=== PATIENT | female | born 1950 | race Caucasian/White ===

== ENCOUNTER → 2016-11-25 16:55 | Outpatient (CLI) | payer MEDICARE, BC | END | disposition home or self-care (01) | LOC: D.MAMMO 11:30 | DX: Z12.31 Encounter for screening mammogram for malignant neoplasm of breast (principal) ==

== ENCOUNTER 2018-11-28 08:00 | Outpatient (CLI) | payer MEDICARE, BC | END 2018-11-28 09:00 | disposition home or self-care (01) | LOC: D.MAMMO 08:00 | PROVIDERS: ATTEND Family Medicine | DX: Z12.31 Encounter for screening mammogram for malignant neoplasm of breast (principal) ==

== ENCOUNTER → 2020-01-22 09:32 | Outpatient (CLI) | payer MEDICARE, BC | END | disposition home or self-care (01) | LOC: D.HCCECHO 09:32 | PROVIDERS: ATTEND Internal Medicine Cardiovascular Disease | DX: I20.9 Angina pectoris, unspecified (principal); I10 Essential (primary) hypertension ==

== ENCOUNTER 2020-03-05 05:47 | Outpatient (CLI) | payer MEDICARE, BC ==
[~2020-03-05] VITALS: Ht 160 cm; Wt 100.5 kg
--- NOTE | ~2020-03-05 | HEMODYNAMI ---
PATIENT:TALIA MULTANI MEDICAL RECORD: [id number] : 46 LOCATION:[facility] ADMISSION DATE: 03/05/20 Generatedon:03/05/20208:36 Patient name: TALIA MULTANI Patient #: [id number] SSN: : 1950 Date of study: 03/05/2020 Page: Of Hemodynamic Procedure Report Patient Data Patient Demographics Procedure consent was obtained First Name: TALIA Gender: Female Last Name: NERISSA : 1950 [facility] Initial: K Age: 69 year(s) Patient #: [id number] Race: Unknown Additional ID: [id number] Contact details Address: [address] [place] [address] ROAD State: [place] City: [place] Zip code: [address] Past Medical History Allergies Allergen Reaction Date Comments Reported Other allergy 03/05/2020 PCN, ERYTHROMYCIN Admission Admission Data Admission Date: 03/05/2020 Admission Time: 5:47 Arrival Date: 03/05/2020 Arrival Time: 0:00 Height (in.): 62.99 BSA: 2.02 (m2) Height (cm.): 160 BMI: 39.45 (kg/m2) Weight (lbs.): 222.67 Weight (kg.): 101 Lab Results Lab Result Date: 03/05/2020 Lab Result Time: 0:00 Biochemistry Name Units Result Min Max BUN mg/dl 11 --(-*--)-- 7 18 Creatinine mg/dl 1 --(--*-)-- 0.6 1.3 eGFR ml/min 58 *-(----)-- 90 120 NONAFRICAN CBC Name Units Result Min Max Hematocrit % 37.6 *-(----)-- 42 54 Hemoglobin g/dl 11.9 *-(----)-- 13.5 17.5 Procedure Procedure Types Cath Procedure Diagnostic Procedure LHC LH w/Coronaries Sedation Charges Moderate Sedation up to 15 minutes PCI Procedure Coronary Stent Coronary Stent Initial Hemochron ACT Test Procedure Description Procedure Date Procedure Date: 03/05/2020 Procedure Start Time: 8:07 Procedure End Time: 8:34 Procedure Staff Name Function Francis Reyna MD Performing Physician Gloria Ridley RT Monitor Felecia Maldonado RT Scrub Coby Holden RN Nurse Madison Bledsoe RT Houseman Procedure Data Cath Procedure Fluoroscopy Diagnostic fluoroscopy Total fluoroscopy Time: 4.4 time: 4.4 min min Diagnostic fluoroscopy Total fluoroscopy dose: dose: 1208 mGy 1208 mGy Contrast Material Contrast Material Type Amount (ml) Isovue 300 131 Entry Location Entry Primary Successful Side Size Upsize Upsize Entry Closure Succes sful Closure Location (Fr) 1 (Fr) 2 (Fr) Remarks Device Remarks Femoral Right 5 Fr 6 Fr Exoseal artery Short Estimated blood loss: 10 ml Diagnostic catheters Device Type Used For End Catheter Placement MULTIPACK JL 4.0 5Fr Left Coronary catheter Angiography MULTIPACK 3DRC 5Fr Right Coronary catheter Angiography MULTIPACK Pigtail 5 Fr LV Angiography catheter Procedure Complications No complications Procedure Medications Medication Administration Route Dosage 0.9% NaCl I.V. 100 ml/hr Oxygen etCO2 Nasal cannula 2 l/min Lidocaine 2% added to field 20 Heparin Flush Bag added to field 2 bags (1000units/500ml NS) Versed I.V. 2 mg Fentanyl I.V. 50 mcg Heparin Bolus I.V. 11690 units Vasotec 1.25 mg Plavix P.O. 600 mg Nitroglycerin IC/IA I.C. 100 mcg Hemodynamics Rest BSA: 2.02 (m2) O2 Consumption: Estimated: 184.1 (ml/min) O2 Consumption indexed: Estimated:91.14 (ml/min/m) Heart Rate: 68 (bpm) Pressure Samples Time Site Value (mmHg) Purpose Heart Use Rate(bpm) 8:14 LV 198/7,11 Snapshot 71 8:15 AO 212/69(127) Pullback 74 8:15 LV 189/38,23 Pullback 74 Gradients Valve Time Site 1 Site 2 Mean SEP/DFP Peak To Heart Use (mmHg) (sec/min) Peak Rate (mmHg) (bpm) Aortic 8:15 LV AO 0 8 0 74 189/38,23 212/69(127) Calculations Valve P-P Mean Valve Index Valve Source Name Gradient Area Flow (cm2) Aortic 0 0 0 0 Snapshots Pre Cath Intra NCS Post Cath Vital Signs Time Heart Resp SPO2 etCO2 NIBP (mmHg) Rhythm Pain Sedation Rate (ipm) (%) (mmHg) Status Level (bpm) 7:56:17 69 15 97 11.2 Measuring NSR 0 (11) 10(A) , No pain 7:56:34 69 15 97 11.9 209/90(154) NSR 0 (11) 10(A) , No pain 8:01:06 68 15 98 1.4 197/84(142) NSR 0 (11) 10(A) , No pain 8:05:30 68 14 97 44.2 193/90(129) NSR 0 (11) 10(A) , No pain 8:09:54 74 14 96 49 200/99(135) NSR 0 (11) 10(A) , No pain 8:14:21 76 14 97 49.4 201/91(133) NSR 0 (11) 10(A) , No pain 8:18:47 78 14 99 0.7 213/94(145) NSR 0 (11) 10(A) , No pain 8:23:17 81 13 98 38.2 161/104(140) NSR 0 (11) 10(A) , No pain 8:28:16 81 13 98 40.4 Measuring NSR 0 (11) 10(A) , No pain 8:28:35 82 14 98 36 198/99(143) NSR 0 (11) 10(A) , No pain 8:33:01 80 14 98 20.9 193/96(164) NSR 0 (11) 10(A) , No pain Medications Time Medication Route Dose Verified Delivered Reason Notes Effectiveness by by 7:54:37 0.9% NaCl I.V. 100 Francis Coby used for ml/hr Axel Holden health and wellness director 7:54:43 Oxygen etCO2 2 Francis Coby used for Nasal l/min Axel Holden procedure cannula RN 7:54:49 Lidocaine 2% added 20ml Francis Francis for local to vial Axel Reyna MD anesthetic field 7:54:53 Heparin Flush added 2 Francis Francis used for Bag to bags Axel Reyna MD procedure (1000units/500ml field NS) 8:06:07 Versed I.V. 2 mg Francis Coby for sedation Axel Holden RN 8:06:15 Fentanyl I.V. 50 Francis Coby for sedation mcg Axel Holden RN 8:19:11 Heparin Bolus I.V. 15438 Francis Coby for verifi ed units Axel Holden anticoagulation with Dr. LANNY Reyna 8:21:57 Vasotec IVP 1.25 Francis Coby for mg Axel Holden hypertension RN 8:23:20 Plavix P.O. 600 Francis Coby for mg Axel Holden antiplatelet RN therapy 8:25:54 Nitroglycerin I.C. 100 Francis Coby for IC/IA mcg Axel Holden vasodilation credit reference clerk Log Time Note 7:40:41 Procedure Status Elective Heart Cath (OP). 7:40:46 Gloria Ridley RT(R) (CV) sent for patient. Start room use. 7:40:47 Time tracking: Regular hours (M-F 7:00 - 5:00) 7:40:50 Plan of Care:Hemodynamics will remain stable., Cardiac rhythm will remain stable., Comfort level will be maintained., Respiratory function will remain adequate., Patient/ family verbilizes understanding of procedure., Procedure tolerated without complication., Recovers from procedure without complications.. 7:40:57 H&P Date Dictated: 03/05/2020 H&P Addendum completed by physician on day of procedure. (MUST COMPLETE FOR ALL OUTPATIENTS), New H&P dictated by physician.. 7:41:15 Patient allergic to Other allergyPCN, ERYTHROMYCIN 7:44:54 Patient Weight : 222.67 lbs 7:44:57 Patient Height : 62.99 inches 7:45:02 Arrival Date: 03/05/2020 12:00:00 AM 7:45:13 Patient received from Pre/Post Procedure Room to CCL 1 Alert and oriented. Tansferred to table in Supine position. 7:45:16 Signed procedure consent form obtained from patient. 7:45:17 Warm blankets applied, and hedy hugger turned on for patient comfort. 7:45:17 Correct patient and procedure confirmed by team. 7:45:17 ECG and BP/O2 sat monitors applied to patient. 7:46:39 Lab Result : BUN 11 mg/dl 7:46:39 Lab Result : Creatinine 1 mg/dl 7:46:39 Lab Result : eGFR NONAFRICAN 58 ml/min 7:46:39 Lab Result : Hemoglobin 11.9 g/dl 7:46:39 Lab Result : Hematocrit 37.6 % 7:48:21 Pre-procedure instructions explained to patient. 7:48:21 Pre-op teaching completed and patient verbalized understanding. 7:48:23 Family in patients room. 7:48:24 Patient NPO since Midnight. 7:48:25 Is patient on blood thinner?No 7:48:26 Patient diabetic? Yes. 7:48:27 If diabetic: On Metformin? Yes 7:48:30 If on Metformin: Last Dose? 03/03/2020 7:48:32 Previous problem with sedation/anesthesia? No ? 7:48:34 Snore? Yes 7:48:35 Sleep apnea? No 7:48:36 Deviated septum? No 7:48:37 Opens mouth fully? Yes 7:48:37 Sticks out tongue? Yes 7:48:39 Airway obstruction? No ? 7:48:44 Dentures? Yes ? 7:48:51 Pre procedure: right dorsailis pedis pulse 1+ Palpable, but thready & weak; easily obliterated 7:48:56 Modified Benjamin's test Ulnar > 7 seconds. 7:49:00 Patient pain scale 0/10 ?. 7:49:09 IV patent on arrival in left hand with 0.9% NaCl at [facility]. 7:49:17 Lab results completed and on chart. 7:49:22 Right groin area was prepped with chlora-prep and draped in sterile fashion 7:49:22 Alarms reviewed by R. N. 7:49:23 Sharps counted by scrub and verified by R.N. 7:49:34 Stress Test: yes; abnormal INFERIOR AND APICAL 7:53:19 Risk of Mortality: .1 7:53:32 Risk of blood transfusion: .3 7:53:35 Risk of SAMIRA: .2 7:54:29 Vital chart was started 7:54:37 0.9% NaCl 100 ml/hr I.V. was administered by Coby Holden RN; used for procedure; Verbal order read back and verified. 7:54:43 Oxygen 2 l/min etCO2 Nasal cannula was administered by Coby Holden RN; used for procedure; Verbal order read back and verified. 7:54:49 Lidocaine 2% 20ml vial added to field was administered by Francis Reyna MD; for local anesthetic; Verbal order read back and verified. 7:54:53 Heparin Flush Bag (1000units/500ml NS) 2 bags added to field was administered by Francis Reyna MD; used for procedure; Verbal order read back and verified. 8:00:00 Use device set Femoral Dx 8:00:02 ACIST Syringe (67961) opened to sterile field. 8:00:02 Bag Decanter (2002S) opened to sterile field. 8:00:03 Medline Cath Pack ([id number]) opened to sterile field. 8:00:05 ACIST Hand Control (36682) opened to sterile field. 8:00:06 ACIST Manifold (07006) opened to sterile field. 8:00:07 DIAGNOSTIC Multipack 5Fr catheter set (OP7150) opened to sterile field. 8:00:08 Tegaderm 4 x 4 (1626W) opened to sterile field. 8:00:09 SHEATH 5FR Alkol (ROY664) opened to sterile field. 8:00:10 EMERALD Guide Wire (019-251) opened to sterile field. 8:04:49 Zero performed for pressure channel P1 8:05:03 Baseline sample Acquired. 8:05:09 Rhythm: sinus rhythm 8:05:20 Physician arrived 8:05:24 --------ALL STOP TIME OUT------ 8:05:25 Final Timeout: patient, procedure, and site verified with staff and physician. All members of the team are in agreement. 8:05:27 Right groin site verified by team. 8:05:34 Fire Safety Assessment: A--An alcohol-based skin anteseptic being used preoperatively., C--Open oxygen or nitrous oxide is being used., D--An ESU, laser, or fiber-optic light is being used. 8:05:38 Physical assessment completed. ASA score P 2 - A patient with mild systemic disease as per Francis Reyna MD. 8:05:44 3a) 45-59 Moderately reduced kidney function. 8:05:48 Maximum allowable contrast dose (3.7 X eGFR X 0.75)161 ml. 8:05:54 Sedation plan: IV Moderate Sedation Medication:Versed, Fentanyl 8:06:07 Versed 2 mg I.V. was administered by Coby Holden RN; for sedation; Verbal order read back and verified. 8:06:15 Fentanyl 50 mcg I.V. was administered by Coby Holden RN; for sedation; Verbal order read back and verified. 8:06:40 Procedure started. 8:06:40 Full Disclosure recording started 8:07:23 Local anesthetic to right femoral artery with Lidocaine 2% by Francis Reyna MD.INITIAL ACCESS ONLY 8:08:39 A 5 Fr sheath was inserted into the Right Femoral artery 8:09:15 A MULTIPACK JL 4.0 5Fr catheter was advanced over the wire and used for Left Coronary Angiography. 8:10:05 LCA angiography performed. 8:10:10 Injector settings: Ml/sec: 3, Volume: 6, 8:12:07 Catheter removed. 8:12:14 A MULTIPACK 3DRC 5Fr catheter was advanced over the wire and used for Right Coronary Angiography. 8:12:20 Injector settings: Ml/sec: 3, Volume: 6, 8:13:09 RCA angiography performed. 8:13:34 ACCDominant side:Right 8:13:37 Catheter removed. 8:13:44 A MULTIPACK Pigtail 5 Fr catheter was advanced over the wire and used for LV Angiography. 8:13:54 Injector settings: Ml/sec: 5, Volume: 15, 8:14:01 LV gram done using GAGNON 8:15:41 EF : 60 % 8:15:44 LV hemodynamics recorded. 8:15:48 Catheter removed. 8:15:50 Proceeding to intervention. 8:16:46 TUBING High Pressure Extension Tubing (Axel) (TX4345A) opened to sterile field. 8:16:47 BMW 300cm [place] 2 J wire ([id number]) opened to sterile field. 8:16:48 INFLATOR Merit BasixCompak (XN7535) opened to sterile field. 8:16:49 GUIDE 6FR XBLAD 3.5 catheter ([id number]) opened to sterile field. 8:16:50 SHEATH 6FR Alkol (IRP321) opened to sterile field. 8:17:20 ACC Pre-intervention BHARATHI Flow is 3. 8:17:33 Sheath upsized to a 6 Fr Short. 8:17:46 6 Fr XBLAD3.5 guide catheter was inserted over the wire 8:19:07 Pre PCI Site: [place] mLAD has 80% stenosis. 8:19:11 Heparin Bolus 91313 units I.V. was administered by Coby Holden RN; for anticoagulation; verified with Dr. Reyna Verbal order read back and verified. 8:20:03 300BMW wire advanced. 8:21:31 Wire advanced across lesion. 8:21:57 Vasotec 1.25 mg IVP was administered by Coby Holden RN; for hypertension; Verbal order read back and verified. 8:22:44 Place stent Inflation Number: 1 A VANESSA RX 3.0 x 30 stent ([id number]) was prepped and advanced across the Mid LAD . The stent was deployed at 14 DANIELITO for 0:16 (min:sec) . 8:23:20 Plavix 600 mg P.O. was administered by Coby Holden RN; for antiplatelet therapy; Verbal order read back and verified. 8:24:22 Stent catheter was removed intact over wire. 8:24:42 LCA angiography performed. 8:25:04 ACC Post-intervention BHARATHI Flow is 3. 8:25:21 Post PCI Site: [place] mLAD has 0% stenosis. 8:25:54 Nitroglycerin IC/IA 100 mcg I.C. was administered by Coby Holden RN; for vasodilation; Verbal order read back and verified. 8:27:50 LCA angiography performed. 8:28:00 EXOSEAL 6Fr (EX600) opened to sterile field. 8:28:18 Wire removed. 8:28:19 Guide catheter removed. 8:28:59 Sheath removed intact; hemostasis achieved with Exoseal to the Right Femoral artery. 8:29:24 Contrast amount:Isovue 300 131ml. 8:29:27 Procedure ended.(Physican Out) 8:29:48 Fluoroscopy time 04.40 minutes. 8:30:22 Dose Area Product 27951 mGy/cm. 8:30:26 Maximum allowable dose exceeded? No. 8:30:27 Sharps counted by scrub and verified by R.N. 8:30:29 Fluoroscopy dose: 1208 mGy 8:30:29 Flurop Dose total: 1208 8:30:39 Insertion/operative site no bleeding no hematoma. 8:30:44 Post-op/insertion site Right Femoral artery dressed using a 4 x 4 and Tegaderm. 8:30:51 Post-procedure physical assessment completed. ASA score P 2 - A patient with mild systemic disease as per Francis Reyna MD. 8:30:55 Post procedure rhythm: unchanged. 8:30:59 Estimated blood loss: 10 ml 8:31:01 Post procedure instruction explained to patient.Patient verbalizes understanding. 8:31:03 Patient needs reinforcement of post procedure teaching. 8:33:02 Procedure type changed to Cath procedure, Diagnostic procedure, LHC, [facility] w/Coronaries, Sedation Charges, Moderate Sedation up to 15 minutes, PCI procedure, Coronary Stent, Coronary Stent Initial, Hemochron ACT Test 8:33:08 Procedure and supply charges have been captured, reviewed, submitted and are correct. 8:33:50 ACT drawn and resulted at 369 seconds. (normal therapeutic range 180-240 seconds). 8:34:08 Procedure Complication : No complications 8:34:12 Vital chart was stopped 8:34:18 [facility] Findings: MVD- PCI performed (see procedure note) 8:34:21 Operative report dictated upon procedure completion. 8:34:22 See physician's report for complete and final results. 8:34:27 Report given to Pre/Post Procedure Room. 8:34:34 Patient transfered to Pre/Post Procedure Room with Stretcher. 8:34:51 Procedure ended. 8:34:51 Full Disclosure recording stopped 8:34:59 ACC-PCI Only Patient was given prescriptions, or instructed by Francis Reyna MD to start/continue the following medications upon discharge: Plavix 8:35:02 End room use (Document Last) Intervention Summary Intervention Notes Time ActionType Lesion and Equipment Used Action# Pressure Duration Attributes 8:22:44 Place stent Mid LAD VANESSA RX 3.0 x 1 14 00:16 30 stent ([id number]) Device Usage Item Name Manufacture Quantity Catalog [facility] Lot# / Number Charge Number Stock Stock Serial# Code ACIST Syringe Acist 1 44953 931864 534471 028636 20 (95347) Medical Systems Inc Bag Decanter Microtek 1 690027 36835 863106 5 () Medical Inc. Medline Cath Medline 1 [id number] 555070 73167 403233 5 Pack ([id number]) ACIST Hand Acist 1 97970 047761 531306 499659 5 Control Medical (49397) Systems Inc ACIST Manifold Acist 1 11339 985511 126065 159677 5 (75499) Medical Systems Inc DIAGNOSTIC Cardinal 1 LF3796 707077 78948 324436 30 Multipack 5Fr Health catheter set (QN0348) Tegaderm 4 x 4 3M 1 1626W 121140 645108 107097 5 (1626W) SHEATH 5FR Terumo 1 OYD925 009072 579346 889531 5 Alkol (HVY051) EMERALD Guide Cardinal 1 502-455 023063 159682 360577 5 Wire (502-455) Health MULTIPACK JL Cardinal 1 174406 5 4.0 5Fr Health catheter MULTIPACK 3DRC Cardinal 1 925130 5 5Fr catheter Health MULTIPACK Cardinal 1 949553 5 Pigtail 5 Fr Health catheter TUBING High Merit 1 [id number] 507414 42482 118354 10 Pressure Medical Extension Tubing (Axel) (JJ5432J) BMW 300cm [place] 1 [id number] 897725 675000 348157 5 [place] 2 J Vascular wire (1620015P) INFLATOR Merit Merit 1 MZ3569 921541 440925 504858 15 BasSunsea Medical (TO4022) GUIDE 6FR Cardinal 1 [id number] 160100 146993 558335 10 XBLAD 3.5 Health catheter (79164057) SHEATH 6FR Terumo 1 KLX367 430591 821159 793155 40 Alkol (EVY268) VANESSA RX 3.0 x Medtronic 1 [id number] 270612 5610408 327349 5 [id number] 30 stent ([id number]) EXOSEAL 6Fr Cardinal 1 EX600 165318 554410 410992 10 (EX600) Health Signature Audit [place]smond Stage Time Signature Unsigned Intra-Procedure 03/05/2020 Gloria 8:35:30 AM [place] RT(R) (CV) Intra-Procedure 03/05/2020 Coby Holden 8:36:25 AM RN Intra-Procedure 03/05/2020 Francis Reyna MD 8:36:[address] [address]
[2020-03-05] MEDS ORDERED: ZOLOFT100 MG PO (06:28)
[2020-03-05] MEDS ORDERED: OMEPRAZOLE20 M1 PO (06:28)
[2020-03-05] MEDS ORDERED: GLUCOPHAGE500 MG PO (06:28)
[2020-03-05] MEDS ORDERED: NORVASC2.5 MG PO (06:29)
[2020-03-05] MEDS ORDERED: MOBIC7.5 MG PO (06:29)
[2020-03-05] MEDS ORDERED: SYNTHROID100 MCG PO (06:29)
[2020-03-05] MEDS ORDERED: GABAPENTIN100 MG PO (06:29)
[2020-03-05] MEDS ORDERED: CALCIUM 600 +1 EAC3 PO (06:30)
[2020-03-05] MEDS ORDERED: LIPITOR20 MG PO (06:30)
[2020-03-05] MEDS ORDERED: COZAAR100 MG PO (06:30)
[2020-03-05] MEDS ORDERED: HYDROCHLOROTH12.5 M1 PO (06:30)
[2020-03-05] MEDS ORDERED: LITE COAT ASPI325 MG PO (06:31)
[2020-03-05] MEDS ORDERED: VITAMIN C500 M1 PO (06:31)
[2020-03-05] MEDS ORDERED: VITAMIN E200 UNI1 PO (06:31)
[2020-03-05] MEDS ORDERED: NITROQUICK0.4 MG SL (06:32)
[2020-03-05] MEDS ORDERED: ATIVAN0.5 MG PO (06:32)
[2020-03-05 06:48] VITALS: BP 219/91; Ht 160 cm; Wt 100.5 kg
[2020-03-05 06:52] LABS: BASOPHILS 0.2 % (0-2); EOSINOPHILS 2.7 % (0-7); HEMATOCRIT 37.6 % (36.0-48.0); HEMOGLOBIN 11.9 g/dL (12-16); LYMPHOCYTES 23.3 % (15-50); MCH 28.1 pg (26.0-34.0); MCHC 31.6 g/dL (31.0-37.0); MCV 88.7 fL (80.0-100.0); MEAN PLATELET VOLUME 9.3 fL (7.4-10.4); NEUTROPHILS 64.8 % (40-80); PLATELET COUNT 205 10x3/uL (130-400); RBC 4.24 10x6/uL (4.00-5.40); RDW 14.6 % (11.5-14.5); WBC 5.2 10x3/uL (4.8-10.8)
[2020-03-05 07:05] LABS: ANION GAP 11.2 mmol/L (8-16); CALCIUM 9.3 mg/dL (8.5-10.1); CARBON DIOXIDE 31.9 mmol/L (21.0-32.0); CHOL - HDL RATIO 2.4 ratio (2.3-4.1); POTASSIUM - SERUM 4.1 mmol/L (3.5-5.1)
[2020-03-05] MEDS ORDERED: BAYER CHEWABLE81 MG PO (08:39)
[2020-03-05] MEDS ORDERED: PLAVIX75 MG PO (08:39)
--- NOTE | 2020-03-05 08:47 | NUR ---
PT ARRIVED BY STRETCHER. PLACED ON MONITORS. ASSESSMENT COMPLETED. VSS AT THIS TIME. CALL LIGHT WITHIN REACH. FAMILY AT BEDSIDE.
--- NOTE | 2020-03-05 09:00 | NUR ---
RIGHT GROIN DRESSING C/D/I. NO S/S OF HEMATOMA NOTED. CALL LIGHT WITHIN REACH. PT ON BEDPAN. VOIDED APPROX 500cc OF CLEAR YELLOW URINE. TABATHA-CARE GIVEN. FAMILY AT BEDSIDE. NO OTHER NEEDS AT THIS TIME.
--- NOTE | 2020-03-05 09:10 | NUR ---
DR. GERMAN ROUNDED AND SPOKE WITH PT AND PT'S NIECE AT BEDSIDE.
--- NOTE | 2020-03-05 09:30 | NUR ---
PT RESTING COMFORTABLY. DENIES PAIN. SBP >180. DR. GERMAN NOTIFIED AND ORDERS RECEIVED. PT GIVEN CATAPRES 0.1MG PO. ABLE TO SWALLOW EASILY. WILL CONTINUE TO MONITOR. VITALS. RIGHT GROIN DRESSING C/D/I. NO S/S OF HEMATOMA NOTED.
--- NOTE | 2020-03-05 10:00 | NUR ---
RIGHT GROIN DRESSING C/D/I. NO S/S OF HEMATOMA NOTED. VSS. CALL LIGHT WITHIN REACH. PT RESTING COMFORTABLY. BP 177/80. TRENDING DOWN AT THIS TIME. WILL CONTINUE TO MONITOR.
--- NOTE | 2020-03-05 10:30 | NUR ---
RIGHT GROIN DRESSING C/D/I. NO S/S OF HEMATOMA NOTED. CALL LIGHT WITHIN REACH. VSS AT THIS TIME. PT DENIES NAUSEA/PAIN. FAMILY AT BEDSIDE.
--- NOTE | 2020-03-05 10:45 | NUR ---
PT C/O CHRONIC BACK PAIN LAYING FLAT. RATES IT A 5/10. PT REPOSITIONED WITH ASSISTANCE AND LOG ROLLED TO RIGHT SIDE WITH PILLOWS BEHIND HER. SHE REPORTS THAT THIS FEELS MUCH BETTER. WILL CONTINUE TO MONITOR. RIGHT GROIN DRESSING C/D/I. NO S/S OF HEMATOMA NOTED.
--- NOTE | 2020-03-05 11:30 | NUR ---
RIGHT GROIN DRESSING C/D/I. NO S/S OF HEMATOMA NOTED. CALL LIGHT WITHIN REACH. VSS AT THIS TIME. HEAD OF BED INC TO 30 DEGREES. TOLERATED WELL. SET UP WITH SANDWICH TRAY AND DRINK. DENIES NAUSEA AND REPORTS THAT BACK FEELS BETTER NOW THAT SHE IS SITTING UP.
--- NOTE | 2020-03-05 12:10 | NUR ---
RIGHT GROIN DRESSING C/D/I. NO S/S OF HEMATOMA NOTED. PIV D/C'D WITH CATH TIP INTACT. TOLERATED WELL. PT INSTRUCTED TO GET UP AND DRESSED AT THIS TIME. FAMILY AT BEDSIDE TO ASSIST.
--- NOTE | 2020-03-05 12:15 | NUR ---
PT AMBULATED TO RESTROOM. VOIDED WITHOUT DIFFICULTY. STEADY GAIT NOTED. RIGHT GROIN DRESSING C/D/I. DISCUSSED DISCHARGE INSTRUCTIONS WITH PT AND PT'S FAMILY. THEY VOICED UNDERSTANDING.
--- NOTE | 2020-03-05 12:30 | NUR ---
PT TAKEN DOWN TO VEHICLE BY WHEELCHAIR. NO S/S OF DISTRESS NOTED. ALL BELONGINGS AND PAPERWORK IN HAND.
== END 2020-03-05 12:30 | disposition home or self-care (01) ==
LOC: D.CATH 05:47
PROVIDERS: ATTEND Internal Medicine Cardiovascular Disease
DX: I25.119 Atherosclerotic heart disease of native coronary artery with unspecified angina pectoris (principal); R94.39 Abnormal result of other cardiovascular function study; E11.40 Type 2 diabetes mellitus with diabetic neuropathy, unspecified; E07.9 Disorder of thyroid, unspecified; I10 Essential (primary) hypertension; K21.9 Gastro-esophageal reflux disease without esophagitis; Z79.84 Long term (current) use of oral hypoglycemic drugs
CPT/HCPCS: 93458; C9600